=== PATIENT | female | born 1990 | race Caucasian/White ===

== ENCOUNTER 2020-08-04 09:35 | Outpatient (REF) | payer MEDICAID, SELFPAY ==
[2020-08-04 11:22] LABS: HCG Quantitative 6962 mIU/mL
== END 2020-08-04 09:36 | disposition home or self-care (01) ==
LOC: HO.LAB 09:35
PROVIDERS: Visit Provider Advanced Practice Midwife
DX: Z34.91 Encounter for supervision of normal pregnancy, unspecified, first trimester (principal)
CPT/HCPCS: 36415; 84702

== ENCOUNTER 2020-08-11 09:13 | Outpatient (REF) | payer MEDICAID, SELFPAY ==
--- NOTE | 2020-08-11 | US_ITS ---
EXAMINATION: FIRST TRIMESTER OB ULTRASOUND CLINICAL INFORMATION: Follow-up gestational sac. Check for viability. COMPARISON: Previous OB ultrasound 08/02/2020 TECHNIQUE: Transabdominal and transvaginal first trimester OB ultrasound was performed. Transvaginal exam was performed for better visualization of the gestational sac. FINDINGS: The uterus is anteverted and normal in size and shape. There is a small calcification in the left body or lower uterine segment of the uterus that appears unchanged. There is an intrauterine gestational sac. A pole is seen. [place]-rump length measures 0.4 cm suggesting gestational age of 6 weeks 1 day with estimated date of delivery of 04/05/2021. There is a heart rate is 116 bpm. There is a yolk sac. The right maternal ovary is normal and measures 4.1 x 1.7 x 1.4 cm. The left maternal ovary measures 3.7 x 2.4 x 2.5 cm and contains a 2.2 x 2 x 1.6 cm complex cyst. There is no fluid in the pelvis. IMPRESSION: Single viable intrauterine . From today's measurements, gestational age is estimated at 6 weeks 1 day with estimated date of delivery of 04/05/2021. Low normal heart rate of 116 bpm.
== END 2020-08-11 09:14 | disposition home or self-care (01) ==
LOC: HO.US 09:13
PROVIDERS: PCP Internal Medicine; Visit Provider Advanced Practice Midwife
DX: Z34.91 Encounter for supervision of normal pregnancy, unspecified, first trimester (principal)
CPT/HCPCS: 76801; 76817

== ENCOUNTER 2020-08-19 10:46 | Outpatient (REF) | payer MEDICAID, SELFPAY ==
--- NOTE | 2020-08-19 11:11 | US_ITS ---
EXAMINATION: OBSTETRICAL ULTRASOUND, FIRST TRIMESTER HISTORY: 30-year-old at the 8.0 weeks of gestation Viability LMP: 06/24/2020 COMPARISON: 08/11/2020 TECHNIQUE: Real time transabdominal imaging with color and M-mode Doppler. FINDINGS: A single, live IUP CRL of 11.9 mm c/w 7.3wks is noted. Heart Rate: 146 beats per minute. Both maternal ovaries are seen and appear normal. GESTATIONAL AGE: 1. GA from LMP: 8.0 wks 2. GA from AUA: 7.3 wks ESTIMATED DATE OF DELIVERY: 1. MARCUS from LMP: 03/31/2021 2. MARCUS from AUA: 04/04/2021 IMPRESSION: 1. A single live IUP 2. Size equals dates 3. Normal ovaries Thank you very much for this referral.
== END 2020-08-19 10:47 | disposition home or self-care (01) ==
LOC: HO.US 10:46
PROVIDERS: PCP Internal Medicine; Visit Provider Advanced Practice Midwife
DX: O26.891 Other specified pregnancy related conditions, first trimester (principal); Z3A.01 Less than 8 weeks gestation of pregnancy
CPT/HCPCS: 76816